=== PATIENT | female | born 1940 | race Caucasian/White ===

== ENCOUNTER → 2016-12-09 | Day surgery (SDC) | payer MEDICARE, OTHER ==
[~2016-12-09] MED LIST: BUPIVACAINE HCL PF 0.5% 30 ML VIAL ONE; CALC1TAB12 PO; DEXI30CA PO; IBUP-988 PO; PRAV20TA PO; PROPOFOL 200 MG/20 ML AMP IV ONE; REST0.05 EACH EYE; ROSU1TAB4 PO; ROSU5 PO; TIMO5TAB PO; TRIAMCINOLONE ACETONIDE 40 MG/ML VIAL I-ARTICULR ONE; TYLE325T PO; VENL37.5 PO; ZOLP5TAB3 PO; methylPREDNISolone ACETATE 40 MG/ML VIAL I-ARTICULR ONE
--- NOTE | 2016-12-09 17:08 | M6 ---
cc: CHERELLE PRATT M.D. DATE 12/09/2016 1940. PROCEDURE Fluoroscopically guided injection bilateral sacroiliac joints. History and physical was completed and signed. Consent was signed. Procedure site was marked. Medications were listed and reconciled. Pain score was recorded. Allergies were noted. Time out was taken. Fluoroscopy time was recorded where applicable. Sedation was administered or directed by Dr. Pratt. The patient was given oxygen. The patient was monitored by a registered nurse. Total procedure time was greater than 15 minutes. IV was started, blood pressure cuff, pulse oximeter and EKG were applied. The patient was placed in the prone position on a Alberto table sedated with small amounts of propofol titrated to effect. Vital signs were monitored and remained stable throughout the procedure. Sacral area was prepped with alcohol and 10% Betadine solution and draped with sterile drapes. Fluoroscopy was used shooting from medial to lateral to clearly visualize the posterior joint line of the bilateral sacroiliac joints. Separate sterile 5-inch 22-gauge spinal needles were advanced into these joints under fluoroscopic guidance. There was negative aspiration for blood or any other type of fluid and the patient was given 2 mL of 0.5% Marcaine, 20 mg of Depo-Medrol and 20 mg of Kenalog at each location. Following this, the patient was taken to the recovery room with stable vital signs neurologically intact. W. MD LYNDSAY Keating/ /9:01 AM /5:00 PM
== END | disposition home or self-care (01) ==
LOC: PHSDC 07:16
PROVIDERS: ATTEND Pain Medicine Interventional Pain Medicine
DX: M54.5 Low back pain (principal)
CPT/HCPCS: 99152; G0260; J1030; J3301; 27096

== ENCOUNTER → 2018-02-09 | Day surgery (SDC) | payer MEDICARE, OTHER ==
[~2018-02-09] MED LIST changes: -CALC1TAB12 PO; +IBUP-232 PO; -ZOLP5TAB3 PO
--- NOTE | 2018-02-09 09:24 | M6 ---
cc: Edna Pratt MD DATE: 02/09/2018 DATE OF : 1940 NAME OF PROCEDURE: Fluoroscopic-guided injection, bilateral sacroiliac joints. PREPROCEDURE NOTE: We last injected Ms. Carrasco's sacroiliac joints in November 2016 and she just had her pain return in the last month, so she got a little over a year's relief from that previous injection. History and physical was completed and signed. Consent was signed. Procedure site was marked. Medications were listed and reconciled. Pain score was recorded. Allergies were noted. Time out was taken. Fluoroscopy time was recorded where applicable. Sedation was administered or directed by Dr. Pratt. The patient was given oxygen. The patient was monitored by a registered nurse. Total procedure time was greater than 15 minutes. PROCEDURE NOTE: IV was started. Blood pressure cuff, pulse oximeter and EKG were applied. The patient was placed in the prone position on a Alberto table, sedated with small amounts of propofol titrated to effect. Vital signs were monitored and remained stable throughout the procedure. The sacral area was prepped with alcohol and 10% Betadine solution and draped with sterile drape. Fluoroscopy was used shooting from medial to lateral to clearly visualize the posterior joint line of the bilateral sacroiliac joints. Separate sterile 5 inch, 22-gauge spinal needles were advanced into these joints under fluoroscopic guidance. There was negative aspiration for blood or any other type of fluid. At each location the patient was given 2 mL of 0.5% Marcaine, 20 mg of Depo-Medrol, 20 mg of Kenalog. Following this, the patient was taken to the recovery room with stable vital signs, neurologically intact. MD LYNDSAY Jacobo/KECIA , 09:11 AM , 09:23 AM
== END | disposition home or self-care (01) ==
LOC: PHSDC 06:43
PROVIDERS: ATTEND Pain Medicine Interventional Pain Medicine
DX: M54.5 Low back pain (principal); M79.604 Pain in right leg; M79.605 Pain in left leg
CPT/HCPCS: 99152; G0260; J1030; J3301; 27096